=== PATIENT | male | born 1995 | race Caucasian/White ===

== ENCOUNTER → 2017-09-26 | Outpatient (REF) | payer BC ==
[2017-09-26 14:40] LABS: PLATELET COUNT, AUTOMATED 220 K/uL (150-450)
== END ==
PROVIDERS: ATTEND Nurse Practitioner Family
DX: R10.9 Unspecified abdominal pain (principal)
CPT/HCPCS: 82040; 82150; 82247; 82310; 82374; 82435; 82565; 82947; 83690; 84075; 84132; 84155; 84295; 84450; 84460; 84520; 85025

== ENCOUNTER 2017-10-01 16:39 | Emergency (ER) | payer OTHER, BC ==
[2017-10-01 16:41] VITALS: BP 154/80
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
== END 2017-10-01 17:08 | disposition home or self-care (01) ==
LOC: ER 16:50
DX: Z04.1 Encounter for examination and observation following transport accident (principal)
CPT/HCPCS: 99281

== ENCOUNTER → 2017-10-01 | Outpatient (CLI) | payer OTHER, BC | LOC: AMB 16:28 | PROVIDERS: ATTEND Nurse Practitioner | DX: R51 Headache (principal); M54.2 Cervicalgia; V49.40XA Driver injured in collision with unspecified motor vehicles in traffic accident, initial encounter; Y92.414 Local residential or business street as the place of occurrence of the external cause | CPT/HCPCS: A0425; A0429 ==